=== PATIENT | female | born 1970 | race Caucasian/White ===

== ENCOUNTER → 2019-06-17 | Outpatient (CLI) | payer BC ==
--- NOTE | 2019-06-17 17:01 | RAD ---
EXAM: Paranasal sinuses. HISTORY: Sinusitis. COMPARISON: None. FINDINGS: 3 views of the paranasal sinuses are obtained. There is severe right Sinus mucosal thickening. There may be a superimposed right maxillary sinus air-fluid level level. There is no nasal septal deviation. IMPRESSION: Suspected severe right maxillary sinus disease. Electronically signed by: Jazzy Alvarado MD (06/17/2019 4:58 PM) [id number]
[2019-06-17 17:05] LABS: BASO # 0.1 x10^3/uL (0.0-0.2); BASO % 1 % (0-3); EOS # 0.2 x10^3/uL (0.0-0.7); EOS % 2 % (0-3); HEMATOCRIT 39.3 % (36.0-47.0); HEMOGLOBIN 13.1 g/dL (12.0-15.5); LYMPH # 1.6 x10^3/uL (1.0-4.8); LYMPH % 20 % (24-48); MEAN CORPUSCULAR HEMOGLOBIN 29 pg (25-35); MEAN CORPUSCULAR HGB CONC 33 g/dL (31-37); MEAN CORPUSCULAR VOLUME 87 fL (79-100); MONO # 0.8 x10^3/uL (0.0-1.1); MONO % 9 % (0-9); NEUT # 5.5 x10^3uL (1.8-7.7); NEUT % 68 % (31-73); PLATELET COUNT 265 x10^3/uL (140-400); RED BLOOD COUNT 4.51 x10^6/uL (3.50-5.40); WHITE BLOOD COUNT 8.2 x10^3/uL (4.0-11.0)
[2019-06-17 17:15] LABS: CALCIUM 8.9 mg/dL (8.5-10.1); CREATININE 0.9 mg/dL (0.6-1.0); GFR 66.5; POTASSIUM 3.9 mmol/L (3.5-5.1)
[2019-06-18 00:07] LABS: FSH 12.8 mIU/mL (.); LUTEINIZING HORMONE 7.5 mIU/mL (.)
== END ==
LOC: RAD 16:25
PROVIDERS: ATTEND Family Medicine
DX: N95.8 Other specified menopausal and perimenopausal disorders (principal); J01.11 Acute recurrent frontal sinusitis; J98.01 Acute bronchospasm
CPT/HCPCS: 36415; 70220; 80048; 83001; 83002; 84145; 85025

== ENCOUNTER 2020-05-04 16:40 | Inpatient (IN) | payer BC ==
[~2020-05-04] VITALS: Ht 165.1 cm; Wt 79.2 kg
[2020-05-04 17:42] VITALS: BP 113/58
[2020-05-04] MEDS ORDERED: ZOLPIDEM 5 MG TABLET. PO PRN (18:00)
[2020-05-04] MEDS ORDERED: ONDANSETRON PF 4 MG/2 ML VIAL. IVP PRN (18:00)
[2020-05-04] MEDS ORDERED: MORPHINE SULFATE 2 MG/ML DISP.SYRIN. IV PRN (18:00)
[2020-05-04] MEDS ORDERED: ACETAMINOPHEN 500 MG TABLET PO PRN (18:00)
[2020-05-04 18:53] LABS: BASO % 0 % (0-3); EOS % 0 % (0-3); HEMATOCRIT 39.1 % (36.0-47.0); HEMOGLOBIN 13.1 g/dL (12.0-15.5); LYMPH % 12 % (24-48); MEAN CORPUSCULAR HEMOGLOBIN 30 pg (25-35); MEAN CORPUSCULAR HGB CONC 34 g/dL (31-37); MEAN CORPUSCULAR VOLUME 90 fL (79-100); MONO # 0.7 x10^3/uL (0.0-1.1); MONO % 8 % (0-9); NEUT # 6.5 x10^3uL (1.8-7.7); NEUT % 79 % (31-73); PLATELET COUNT 216 x10^3/uL (140-400); RED BLOOD COUNT 4.36 x10^6/uL (3.50-5.40); RED CELL DISTRIBUTION WIDTH 13.8 % (11.5-14.5); WHITE BLOOD COUNT 8.2 x10^3/uL (4.0-11.0)
[2020-05-04] MEDS: IV NORMAL SALINE 1,000ML 1,000 ML IV SCH (18:58)
[2020-05-04 19:08] LABS: ALBUMIN 2.3 g/dL (3.4-5.0); ALBUMIN/GLOBULIN RATIO 0.7 (1.0-1.7); ALK PHOS 59 U/L (46-116); ALT (SGPT) 27 U/L (14-59); ANION GAP 8 (6-14); AST (SGOT) 19 U/L (15-37); BLOOD UREA NITROGEN 10 mg/dL (7-20); BUN/CREATININE RATIO 14 (6-20); CALCIUM 6.5 mg/dL (8.5-10.1); CARBON DIOXIDE 23 mmol/L (21-32); CHLORIDE 110 mmol/L (98-107); CREATININE 0.7 mg/dL (0.6-1.0); GFR 88.6; GLUCOSE 85 mg/dL (70-99); SODIUM 141 mmol/L (136-145); TOTAL PROTEIN 5.4 g/dL (6.4-8.2)
[2020-05-04 19:13] LABS: POTASSIUM 2.9 mmol/L (3.5-5.1)
[2020-05-04 19:24] LABS: TOTAL BILIRUBIN < 0.1 mg/dL (0.2-1.0)
[2020-05-04] MEDS ORDERED: AZITHROMYCIN 250 MG TABLET. PO ONE (19:30)
[2020-05-04] MEDS ORDERED: CITA40TA5 PO (19:34)
[2020-05-04] MEDS ORDERED: CETI10TA74 PO (19:34)
[2020-05-04 19:40] VITALS: BP 110/67
[2020-05-04] MEDS: DEXAMETHASONE SOD PHOS 4 MG/ML VIAL. IVP SCH (20:15)
[2020-05-04] MEDS: ENOXAPARIN 40 MG/0.4 ML SYRINGE. SQ SCH (20:15)
[2020-05-04 20:47] LABS: BACTERIA,URINE FEW /HPF (0-FEW); BILIRUBIN,URINE NEG (NEG); CLARITY,URINE CLEAR; COLOR,URINE AMBER; GLUCOSE,URINE NEG (NEG); NITRITE,URINE NEG (NEG); SQUAMOUS EPITHELIAL CELL,UR MANY /LPF; UROBILINOGEN,URINE 0.2 mg/dL (0.2 mg/dL)
--- NOTE | 2020-05-04 21:18 | RAD ---
Exam: CT of abdomen and pelvis without contrast INDICATION: Abdominal pain, left upper quadrant TECHNIQUE: Sequential axial images through the abdomen and pelvis obtained without IV contrast. Sagit gillian and coronal reformatted images were reconstructed from the axial data and reviewed. Comparisons: None FINDINGS: Heart size is normal. Joint. Patchy areas of groundglass opacity noted at the lung bases bilaterally. No pleural effusion. Liver, spleen, pancreas, gallbladder and adrenals are unremarkable. There are several nonobstructing renal calculi noted bilaterally. No ureteral calculi are identified. Bladder is decompressed not well evaluated. Uterus is not enlarged. No abnormal adnexal mass. Large and small bowel are unremarkable. Appendix is not identified. No free intra-abdominal air or fl uid. No obstruction. Abdominal aorta has a normal course and caliber. No enlarged intra-abdominal lymph nodes are identified. No suspicious osseous lesions or acute fractures. IMPRESSION: 1. Patchy ground glass opacity at lung bases bilaterally favored to be infectious or inflammatory in etiology. Correlate for atypical/viral causes such as Covid. 2. No acute process identified within the abdomen or pelvis. Exposure: One or more of the following in the visualized dose reduction techniques were utilized for this examination: 1. Automated exposure control 2. Adjustment of the MA and/or KV according to patient size 3. Use of iterative of reconstructive technique Electronically signed by: Beatrice Gutierres MD (05/04/2020 9:16 PM) [facility]
--- NOTE | 2020-05-04 22:18 | RAD ---
Exam: Chest 2 views INDICATION: Cough and fever TECHNIQUE: Frontal and lateral views the chest Comparisons: 02/01/2014 FINDINGS: The cardiomediastinal silhouette and pulmonary vessels are within normal limits. Patchy bibasilar airspace disease. No pleural effusion. IMPRESSION: Patchy bibasilar airspace disease Electronically signed by: Beatrice Gutierres MD (05/04/2020 10:16 PM) [facility]
[2020-05-05 00:20] VITALS: BP 116/64
[2020-05-05] MEDS: POTASSIUM CHLORIDE 10MEQ 100 ML IV SCH ×4 (00:49→04:58)
[2020-05-05] MEDS: IV NORMAL SALINE 1,000ML 1,000 ML IV SCH ×3 (04:59→21:53)
[2020-05-05] MEDS: DEXAMETHASONE SOD PHOS 4 MG/ML VIAL. IVP SCH ×3 (07:43→20:20)
[2020-05-05 08:12] LABS: CALCIUM 8.3 mg/dL (8.5-10.1); CREATININE 0.9 mg/dL (0.6-1.0); GFR 66.3; POTASSIUM 4.3 mmol/L (3.5-5.1)
[2020-05-05 09:29] VITALS: BP 131/63
[2020-05-05] MEDS ORDERED: ORPHENADRINE CITRATE 60 MG/2 ML VIAL. IM ONE ×2 (10:00→22:00)
--- NOTE | 2020-05-05 10:14 | PN ---
DATE: SUBJECTIVE: The patient came in with severe left flank pain, difficulty in some breathing. The patient has COVID-19. The patient's x-ray shows possible pneumonic processes, probable pleuritic on top of the fact that she was running a temperature. She had not responded to outpatient therapy. Pain was rated 10/10 and even despite IM injections in the office the patient is still continued to have severe pain. She was brought in, found to have pneumonic processes, placed on IV antibiotic therapy as well as azithromycin, Decadron as well as continue monitoring. She had a positive D-dimer, which is being evaluated 0.88 on that. OBJECTIVE: VITAL SIGNS: Otherwise this morning, blood pressure 110/70, respiratory rate 20, pulse 70, she is afebrile, was 99.2. GENERAL: The patient otherwise alert and oriented, still complaining of pain in her lower back and up to her left flank area, made worse with movement and breathing. LUNGS: Otherwise, lungs were diminished, some decreased breath sounds in the bases. CARDIOVASCULAR: Regular sinus rhythm, S1, S2, without murmur, rub, thrill, or extra heart sound. ABDOMEN: Soft, nontender. EXTREMITIES: No clubbing, cyanosis or edema. NEUROLOGIC: Stable. LABORATORY DATA: Basically unremarkable except for D-dimer. She also has extremely low potassium of 2.9, which was corrected with electrolyte replacement. Calcium was also low at 6.5, that has come up to 8.3, protein albumin 2.3. IMPRESSION: Therefore, COVID-19 pneumonia, left flank pain, severe hypokalemia, hypocalcemia, pseudo and severe protein malnutrition. GUILHERME WESTON MD DR: ALEC/vianey JOB#: [id number] / [id number]
[2020-05-05] MEDS ORDERED: IOHEXOL 350 MG/ML 100 ML VIAL. IV ONE (10:45)
--- NOTE | 2020-05-05 12:00 | RAD ---
EXAM: CT chest with contrast - pulmonary embolus protocol CLINICAL HISTORY: Reason: severe left lower lung pain +D DIMer, covid + / Spl. Instructions: / H istory: . COMPARISON: None. TECHNIQUE: CT of the chest following the administration of intravenous contrast during the pulmonary arterial phase. Axial, coronal and sagittal reformatted images were generated including MIP images. ---PQRS compliance statement - One or more of the following individualized dose reduction techniques were utilized for this study: 1. Automated exposure control 2. Adjustment of the mA and/or kV according to patient size 3. Use of iterative reconstruction technique--- FINDINGS: CHEST: Diagnostic quality: Adequate. Pulmonary emboli: None seen Right heart strain: None Pulmonary arteries: Normal in caliber. Heart is not enlarged. No pericardial effusion. No axillary lymphadenopathy. No mediastinal or hilar lymphadenopathy. No pleural effusion or pneumothorax. Groundglass opacities are seen in the lower lobes bilaterally. Otherwise opacities are also seen in t he dependent aspect of the left upper lobe. No suspicious lung nodule or mass is seen although may be obscured by parenchymal opacities. Visualized Upper abdomen: Unremarkable Bones: No aggressive osseous lesion is seen. IMPRESSION: 1. No evidence for acute pulmonary embolus. 2. Groundglass opacities are seen in the lower lobes bilaterally likely multifocal consolidative pro cess such as pneumonia. Imaging follow-up to resolution is recommended. Electronically signed by: Farzad Bangura MD (05/05/2020 11:58 AM) [id number]
[2020-05-05 15:40] VITALS: BP 121/64
--- NOTE | 2020-05-05 17:36 | RAD ---
Exam: Lumbar spine 2 views INDICATION: Severe pain TECHNIQUE: Frontal and lateral views of the lumbar spine Comparisons: None FINDINGS: Vertebral body heights and alignment are well-maintained. There is mild bilateral facet arthropathy noted predominantly at the lower lumbar spine. Visualized paraspinal soft tissues are unremarkable. IMPRESSION: Mild spondylotic changes lumbar spine as described above. Electronically signed by: Beatrice Gutierres MD (05/05/2020 5:33 PM) [facility]
[2020-05-05 19:45] VITALS: BP 135/63
[2020-05-05] MEDS: ENOXAPARIN 40 MG/0.4 ML SYRINGE. SQ SCH (20:20)
[2020-05-05] MEDS ORDERED: AZITHROMYCIN 250 MG TABLET. PO SCH (21:00)
[2020-05-05 23:01] VITALS: BP 142/79
[2020-05-06] MEDS: IV NORMAL SALINE 1,000ML 1,000 ML IV SCH ×2 (00:58→05:56)
[2020-05-06 05:51] VITALS: BP 119/66
[2020-05-06 06:46] LABS: CALCIUM 8.4 mg/dL (8.5-10.1); CREATININE 0.9 mg/dL (0.6-1.0); GFR 66.3
[2020-05-06] MEDS: DEXAMETHASONE SOD PHOS 4 MG/ML VIAL. IVP SCH (07:49)
[2020-05-06 10:49] VITALS: BP 121/68
[2020-05-06] MEDS ORDERED: AZIT250T6 PO (12:09)
[2020-05-06] MEDS ORDERED: LEVO500T8 PO (12:09)
[2020-05-06] MEDS ORDERED: ORPH-16 PO (12:09)
[2020-05-06] MEDS ORDERED: IPRA4AER INH (12:09)
--- NOTE | 2020-05-06 12:12 | DS ---
DATE OF DISCHARGE: HOSPITAL COURSE: A 49-year-old female came in with bilateral consolidation in her lungs of COVID-19 pneumonia, also severe left flank pain. The patient was admitted and placed on IV antibiotic therapy including azithromycin and Zosyn. The patient was given Decadron as well. The patient made relatively good progress except for this pain in her left lobe. The patient was having difficulty breathing. She had this severe left flank pain and as a result of this, the patient was admitted for IV antibiotic therapy. Her x-rays, CAT scan showed a consolidation in the lower lobes. Ground glass opacities bilateral, likely multifocal consolidative processes of pneumonia noted. She was placed on steroids, a course of dexamethasone, Lovenox, azithromycin. She made excellent progress with this. She remained basically afebrile, blood pressure 120/68, respiratory rate 20, pulse 98, oxygen saturation 97% on room air. She was afebrile. The patient was discharged home on some oral antibiotics, tapering dose on her prednisone, isolation for 10 days. Make further evaluation on her as an outpatient. The COVID actually been diagnosed a few weeks earlier. Her potassium was low at 2.9 that was corrected, but she is still positive for the virus. IMPRESSION: Pneumonia, bilateral lobe consolidation secondary to COVID-19, left flank pain, severe protein malnutrition, hypokalemia. PLAN: The patient continued to be monitored carefully and make further evaluation as an outpatient, be on a regular diet and be on isolation as indicated. GUILHERME WESTON MD DR: ALEC/vianey JOB#: [id number] / [id number]
== END 2020-05-06 13:46 | disposition home or self-care (01) | DRG 177 ==
LOC: 1 SOUTH 16:40
PROVIDERS: ADMIT Family Medicine; ATTEND Family Medicine
DX: U07.1 COVID-19 (principal); J12.82 Pneumonia due to coronavirus disease 2019; E43 Unspecified severe protein-calorie malnutrition; E83.51 Hypocalcemia; E87.6 Hypokalemia; Z68.29 Body mass index [BMI] 29.0-29.9, adult
CPT/HCPCS: 36415; 71046; 71275; 72100; 74176; 80048; 80053; 81001; 83605; 85025; 85379; 87040; 87086; J1100; J1650; J2270; J2360; J3480; Q9967; U0003; J7030